=== PATIENT | male | born 1965 | race Caucasian/White ===

== ENCOUNTER 2016-11-17 12:11 | Emergency (ER) | payer OTHER | END 2016-11-17 13:27 | disposition home or self-care (01) | LOC: ER 12:11 | DX: S41.142A Puncture wound with foreign body of left upper arm, initial encounter (principal); S40.022A Contusion of left upper arm, initial encounter; W45.8XXA Other foreign body or object entering through skin, initial encounter; W29.8XXA Contact with other powered hand tools and household machinery, initial encounter; F17.210 Nicotine dependence, cigarettes, uncomplicated; Z86.73 Personal history of transient ischemic attack (TIA), and cerebral infarction without residual deficits; I25.2 Old myocardial infarction | CPT/HCPCS: 73080; 99070; 99283-25 ==

== ENCOUNTER 2016-11-30 18:27 | Emergency (ER) | payer OTHER | END 2016-11-30 19:22 | disposition home or self-care (01) | LOC: ER 18:27 | DX: M79.604 Pain in right leg (principal); I51.9 Heart disease, unspecified; Z79.82 Long term (current) use of aspirin; F17.210 Nicotine dependence, cigarettes, uncomplicated | CPT/HCPCS: 96372; 99282-25 ==